=== PATIENT | female | born 1930 | race Caucasian/White ===

== ENCOUNTER 2017-08-09 06:06 | Emergency (ER) | payer OTHER, BC ==
[~2017-08-09] VITALS: Ht 165.1 cm; Wt 56.7 kg
--- NOTE | ~2017-08-09 | EKG ---
[address] [place] [address] ELECTROCARDIOGRAM REPORT Name: MARCELO DAWN Room #: YUE Mitchell#: [id number] Admission: 08/09/17 Attend Phys: Discharge: Date of : [birth year] Report #: [id number] THIS REPORT FOR: //name// [facility] ED Test Date: 2017-08-09 Test Time: 06:18:24 Pat Name: MARCELO DAWN Department: Room: Gender: F Application Architect Manager: tk : [id number] Requested By: Christy Madden Order Number: [id number] MD: Grey Figueredo Measurements Intervals [place] Rate: 72 P: 77 HI: 222 QRS: -46 QRSD: 151 T: 133 QT: 421 QTc: 461 Interpretive Statements Sinus rhythm Prolonged HI interval Left bundle branch block Compared to ECG 06/04/2016 20:55:00 No significant change was found Electronically Signed On 08-09-2017 8:33:25 CDT by Grey Figueredo [email or web address] <ELECTRONICALLY SIGNED> By: Grey Figueredo MD, [facility] 08/09/17 0833 06 Grey Figueredo MD, FACC /EPI
[~2017-08-09 06:06] MED LIST: APAP650 PO; ASPIR 8181 MG PO; ASPIRIN EC81 M1; AZOPT OPHTH1 %/10 M1 OP; B-100 COMPLEX100 MG PO; B-COMPLEX FOL400 MCG; BENAZEPRIL HCL20 MG PO; CALCIUM 600 +1 EAC1; CALCIUM 600 +1 EAC1 PO; CARBIDOPA-LEVO1 EAC9 PO; CARVEDILOL12.5 MG PO; COSOPT EYE DROPS5 ML OP; DESYREL; FOLIC ACID 40400 MCG PO; KLOR-CON 1010 MEQ PO; LASIX 20 MG TAB20 MG PO; LEVAQUIN 750 M750 MG PO; LEVOXYL150 MCG PO; LEVOXYL175 MCG; LISINOPRIL10 MG PO; LISINOPRIL2.5 MG; LISINOPRIL2.5 MG PO; METAMUCIL283 GM PO; MIRALAX255 GM; MIRALAX255 GM PO; MIRAPEX; MIRAPEX0.5 MG PO; NEURONTIN 300300 M1 PO; NORCO 5-325 TA1 EACH PO; OMEPRAZOLE 20 M20 M1 PO; PREDNISONE 5 MG5 M1 PO; PRIMIDONE50 MG; PRIMIDONE50 MG PO; TOPROL XL100 MG; TOPROL XL100 MG PO; TRAMADOL 50 MG50 MG PO; TRAVATAN Z2.5 ML OPHTHALMIC; VITAMIN B-12500 MCG PO; VOLTAREN GEL 1100 G2 TOP; XALATAN2.5 ML; [UNRECOGNIZED DRUG - OTHER]
[2017-08-09] MEDS ORDERED: TRAMADOL 50 MG50 MG PO (06:22)
[2017-08-09 06:32] LABS: ABSOLUTE NEUTROPHILS 6.5 thou/uL (1.4-8.2); BASOPHILS 1.1 % (0.0-2.0); HEMATOCRIT 42.4 % (37.0-47.0); HEMOGLOBIN 14.3 gm/dL (12.0-15.0); LYMPHOCYTES 11.4 % (24.0-44.0); MCH 31.2 pg (26.0-34.0); MCHC 33.7 g/dL (28.0-37.0); MCV 92.5 fL (80.0-100.0); MONOCYTES 7.4 % (1.0-8.0); PLATELET COUNT 178 thou/uL (150-400); POLYS 78.1 % (36.0-66.0); RBC 4.58 mil/uL (4.20-5.00); RDW 14.2 % (10.5-14.5); WBC 8.3 thou/uL (4.0-11.0)
[2017-08-09 06:37] LABS: ANION GAP 3 mmol/L (7-16); BUN 29 mg/dL (7-18); CALCIUM 9.4 mg/dL (8.5-10.1); CHLORIDE 100 mmol/L (98-107); CO2 33 mmol/L (21-32); CREATININE 0.9 mg/dL (0.6-1.0); GLUCOSE 108 mg/dL (74-106); POTASSIUM 3.9 mmol/L (3.5-5.1); SODIUM 136 mmol/L (136-145)
[2017-08-09 06:46] LABS: TROPONIN-I < 0.04 ng/mL (<0.06)
== END 2017-08-09 09:25 | disposition home or self-care (01) ==
LOC: ER 06:06
PROVIDERS: Emergency Medicine
DX: R07.9 Chest pain, unspecified (principal); I10 Essential (primary) hypertension; I25.10 Atherosclerotic heart disease of native coronary artery without angina pectoris; G62.9 Polyneuropathy, unspecified; G25.81 Restless legs syndrome; G89.29 Other chronic pain; M54.9 Dorsalgia, unspecified; Z85.3 Personal history of malignant neoplasm of breast; Z86.73 Personal history of transient ischemic attack (TIA), and cerebral infarction without residual deficits; Z90.49 Acquired absence of other specified parts of digestive tract; Z90.710 Acquired absence of both cervix and uterus; Z88.8 Allergy status to other drugs, medicaments and biological substances; Z88.0 Allergy status to penicillin